=== PATIENT | male | born 1990 | race Caucasian/White ===

== ENCOUNTER 2020-01-09 12:24 | Emergency (ER) | payer MEDICAID ==
[~2020-01-09] VITALS: Ht 170.2 cm; Wt 68.0 kg
[~2020-01-09 12:24] MED LIST: ALPR0.5T8 PO; BUSP7.5T7 PO; DOXY20TA3 PO; FINA1TAB11 PO; FLUO40CA49 PO; FOLI1TAB16 PO; MONT10TA22 PO; Multivitamins GT; NICO1PAT28 TD; ONDA4TAB5 PO; THIA100T13 PO
--- NOTE | 2020-01-09 12:42 | NUR ---
Patient A/Ox4, c/o nausea and abdominal pain. To ER #3. Noted with agitation, restless.
[2020-01-09] MEDS ORDERED: LORAZEPAM INJ 2 MG/ML VIAL IM ONE (13:00)
[2020-01-09] MEDS ORDERED: ONDANSETRON HCL/PF - ER 4 MG/2 ML VIAL IM ONE (13:00)
[2020-01-09 13:26] VITALS: BP 128/81
--- NOTE | 2020-01-09 13:27 | NUR ---
Patient discharged to home in stable condition. Written and verbal after care instructions given. Patient verbalizes understanding of instruction.
== END 2020-01-09 13:26 | disposition home or self-care (01) ==
LOC: MERGE 12:26 → ER 12:26
DX: R11.2 Nausea with vomiting, unspecified (principal); F12.90 Cannabis use, unspecified, uncomplicated; J45.909 Unspecified asthma, uncomplicated; F41.9 Anxiety disorder, unspecified; Z79.899 Other long term (current) drug therapy
CPT/HCPCS: 96372 ×2; 99284; J2060; J2405

== ENCOUNTER 2020-01-10 21:36 | Emergency (ER) | payer MEDICAID ==
[~2020-01-10] VITALS: Ht 170.2 cm; Wt 68.0 kg
[2020-01-10 21:40] VITALS: BP 115/78
== END 2020-01-10 22:42 | disposition home or self-care (01) ==
LOC: ER 21:37 → MERGE 21:37 → ER 22:42
DX: F12.188 Cannabis abuse with other cannabis-induced disorder (principal); R10.11 Right upper quadrant pain; R11.2 Nausea with vomiting, unspecified; J45.909 Unspecified asthma, uncomplicated; F41.9 Anxiety disorder, unspecified; Z79.899 Other long term (current) drug therapy

== ENCOUNTER 2020-01-11 07:44 | Emergency (ER) | payer MEDICAID ==
[~2020-01-11] VITALS: Ht 170.2 cm; Wt 70.3 kg
--- NOTE | 2020-01-11 07:55 | NUR ---
CAME IN FOR NAUSEA AND VOMITING STARTED LAST NIGHT. "I WAS DISCHARGED LAST NIGHT AND THE NAUSEOUS FEELING DOESN'T GO AWAY, I CAN'T KEEP ANYTHING DOWN", TO ER BED 11, HOOKED TO MONITOR, CHANGED TO HOSP GOWN, WARM BLANKET PROVIDED, PATIENT AAO x 4, BREATHING EVEN AND UNLABORED. DR MCCABE AT BEDSIDE
[2020-01-11] MEDS ORDERED: FAMOTIDINE/PF INJ 20 MG/2 ML VIAL IV ONE ×2 (08:00→08:10)
[2020-01-11] MEDS ORDERED: LORAZEPAM INJ 2 MG/ML VIAL IV ONE (08:00)
[2020-01-11] MEDS ORDERED: METOCLOPRAMIDE HCL 10 MG/2 ML VIAL IV ONE (08:00)
[2020-01-11] MEDS ORDERED: diphenhydrAMINE HCL 50 MG/ML VIAL IV ONE (08:00)
[2020-01-11] MEDS ORDERED: IV NS 0.9% 1,000 ML BAG IV ONE (08:00)
[2020-01-11] MEDS ORDERED: LORAZEPAM INJ 2 MG/ML VIAL ONE (08:10)
[2020-01-11] MEDS ORDERED: diphenhydrAMINE HCL 50 MG/ML VIAL ONE (08:10)
[2020-01-11] MEDS ORDERED: METOCLOPRAMIDE HCL 10 MG/2 ML VIAL ONE (08:13)
[2020-01-11 08:16] LABS: BASOPHILS % (AUTO) 0.4 % (0.0-2.0); EOSINOPHILS % (AUTO) 0.1 % (0.0-6.0); HEMATOCRIT 48 % (39-51); HEMOGLOBIN 16.3 g/dL (13.5-17.5); LYMPHOCYTES # (AUTO) 1.7 /CMM (0.8-4.8); MEAN CORPUSCULAR HGB CONC 34 g/dl (31.0-36.0); MEAN CORPUSCULAR VOLUME 89 fL (80-96); MONOCYTES # (AUTO) 0.9 /CMM (0.1-1.30); MONOCYTES % (AUTO) 9.6 % (2.0-12.0); NEUTROPHILS # (AUTO) 7.2 /CMM (1.8-8.9); NEUTROPHILS % (AUTO) 72.9 % (43.0-81.0); PLATELET COUNT (AUTO) 366 /CMM (150-450); RED BLOOD CELL COUNT(AUTO) 5.38 MIL/uL (4.5-6.0); WHITE BLOOD COUNT (AUTO) 9.8 K/uL (4.3-11.0)
[2020-01-11 08:27] LABS: CALCIUM, SERUM 9.3 mg/dL (8.5-10.1); POTASSIUM 2.9 mmol/L (3.5-5.1)
[2020-01-11 08:34] LABS: ALBUMIN 4.8 g/dL (3.4-5.0); BILIRUBIN,DIRECT 0.4 mg/dL (0.0-0.2); BILIRUBIN,TOTAL 1.7 mg/dL (0.2-1.0); TOTAL PROTEIN, SERUM 7.9 g/dL (6.4-8.2)
[2020-01-11] MEDS ORDERED: HALOPERIDOL LACTATE INJ 5 MG/ML VIAL IV ONE (09:00)
[2020-01-11] MEDS ORDERED: DEXAMETHASONE SOD PHOSPHATE 10 MG/ML VIAL IV ONE (09:00)
[2020-01-11] MEDS ORDERED: DEXAMETHASONE SOD PHOSPHATE 10 MG/ML VIAL ONE (09:17)
[2020-01-11] MEDS ORDERED: HALOPERIDOL LACTATE INJ 5 MG/ML VIAL ONE (09:17)
--- NOTE | 2020-01-11 09:24 | NUR ---
patient in bed asleep, easily arousable by voice. hooked to monitor, vss. will continue to monitor accordingly.
[2020-01-11] MEDS ORDERED: POTASSIUM CL. PREMIX PERIPHER. 50 ML IV SCH (09:30)
[2020-01-11] MEDS ORDERED: POTASSIUM CL. PREMIX PERIPHER. 50 ML ONE (09:43)
[2020-01-11 11:50] VITALS: BP 126/67
--- NOTE | 2020-01-11 11:50 | NUR ---
IV removed. Catheter intact and site benign. Pressure and 4x4 applied to site. No bleeding noted.Patient discharged to home in stable condition. Written and verbal after care instructions given. Patient verbalizes understanding of instruction.
== END 2020-01-11 11:51 | disposition home or self-care (01) ==
LOC: ER 07:44 → MERGE 07:44 → ER 11:51
DX: R11.2 Nausea with vomiting, unspecified (principal); J45.909 Unspecified asthma, uncomplicated; F41.9 Anxiety disorder, unspecified; Z79.899 Other long term (current) drug therapy
CPT/HCPCS: 36415; 80048; 80076; 83690; 85025; 96361; 96374; 96375; 99284; J1100; J1200; J1630; J2060; J2765; J3480; J3490; J7030

== ENCOUNTER 2022-02-19 00:41 | Emergency (ER) | payer MEDICAID, OTHER ==
[~2022-02-19] VITALS: Ht 170.2 cm; Wt 78.9 kg
--- NOTE | 2022-02-19 01:10 | NUR ---
BIBFRIEND C/O FEELING NAUSEA FOR THE PAST FEW HOURS. PATIENT IS WITH ABDOMINAL PAIN 5/10, VOMITING SEVERAL EPISODES. AAOX4. ATTACHED TO MONITOR. VITALS CHECKED.
[2022-02-19] MEDS ORDERED: ONDANSETRON HCL/PF 4 MG/2 ML VIAL ONE (01:17)
[2022-02-19] MEDS ORDERED: ONDANSETRON HCL/PF 4 MG/2 ML VIAL IVP ONE (01:30)
[2022-02-19] MEDS ORDERED: IV NS 0.9% 1,000 ML BAG IV ONE (01:30)
--- NOTE | 2022-02-19 01:35 | NUR ---
IV CANNULA G18 INSERTED ON RIGHT AC. BLOOD DRAWN AND SENT TO LAB
[2022-02-19] MEDS ORDERED: METOCLOPRAMIDE HCL 10 MG/2 ML VIAL ONE (01:53)
[2022-02-19] MEDS ORDERED: METOCLOPRAMIDE HCL 10 MG/2 ML VIAL IV ONE (02:00)
[2022-02-19 02:01] LABS: BASOPHILS % (AUTO) 0.4 % (0.0-2.0); EOSINOPHILS % (AUTO) 0.1 % (0.0-6.0); HEMATOCRIT 49 % (39-51); HEMOGLOBIN 16.2 g/dL (13.5-17.5); LYMPHOCYTES # (AUTO) 1.4 K/uL (0.8-4.8); LYMPHOCYTES % (AUTO) 16.9 % (20.0-44.0); MEAN CORPUSCULAR HGB CONC 33 g/dl (31.0-36.0); MEAN CORPUSCULAR VOLUME 90 fL (80-96); MONOCYTES # (AUTO) 0.4 K/uL (0.1-1.30); NEUTROPHILS # (AUTO) 6.6 K/uL (1.8-8.9); NEUTROPHILS % (AUTO) 77.6 % (43.0-81.0); PLATELET COUNT (AUTO) 355 K/uL (150-450); WHITE BLOOD COUNT (AUTO) 8.6 K/uL (4.3-11.0)
[2022-02-19 02:08] LABS: CALCIUM, SERUM 9.5 mg/dL (8.5-10.1); POTASSIUM 3.5 mmol/L (3.5-5.1)
--- NOTE | 2022-02-19 02:08 | NUR ---
URINE SPECIMEN SENT TO LAB
[2022-02-19 02:13] LABS: ALBUMIN 4.9 g/dL (3.4-5.0); BILIRUBIN,TOTAL 0.7 mg/dL (0.2-1.0); TOTAL PROTEIN, SERUM 8.1 g/dL (6.4-8.2)
[2022-02-19] MEDS ORDERED: MAG HYDROX/AL HYDROX/SIMETH 30 ML UDC PO ONE (02:30)
[2022-02-19] MEDS ORDERED: LIDOCAINE VISCOUS 2% UD 15 ML UDC MM ONE (02:30)
[2022-02-19] MEDS ORDERED: PANTOPRAZOLE 40 MG VIAL IV ONE (02:30)
[2022-02-19] MEDS ORDERED: KETOROLAC TROMETHAMINE INJ 30 MG/ML VIAL IV ONE (02:30)
[2022-02-19] MEDS ORDERED: KETOROLAC TROMETHAMINE 15 MG/ML VIAL ONE (02:35)
[2022-02-19] MEDS ORDERED: LIDOCAINE VISCOUS 2% UD 15 ML UDC ONE (02:35)
[2022-02-19] MEDS ORDERED: MAG HYDROX/AL HYDROX/SIMETH 30 ML UDC ONE (02:35)
[2022-02-19] MEDS ORDERED: PANTOPRAZOLE 40 MG VIAL ONE (02:35)
[2022-02-19] MEDS ORDERED: HALOPERIDOL LACTATE INJ 5 MG/ML VIAL IM ONE (03:30)
[2022-02-19] MEDS ORDERED: HALOPERIDOL LACTATE INJ 5 MG/ML VIAL ONE (03:41)
[2022-02-19 03:46] LABS: BILIRUBIN,URINE NEGATIVE (NEGATIVE); COLOR,URINE YELLOW (YELLOW); LEUKOCYTE ESTERASE ,URINE NEGATIVE (NEGATIVE); NITRITE, URINE NEGATIVE (NEGATIVE); PROTEIN,URINE NEGATIVE (NEGATIVE); UGLUCOSE NEGATIVE (NEGATIVE); UROBILINOGEN,URINE 0.2 EU/dL (0.2)
[2022-02-19] MEDS ORDERED: METO-295 PO (04:09)
[2022-02-19] MEDS ORDERED: ONDA4TAB11 PO (04:09)
--- NOTE | 2022-02-19 04:30 | NUR ---
Patient discharged to home in stable condition. Written and verbal after care instructions given. Patient verbalizes understanding of instruction.
--- NOTE | 2022-02-19 04:30 | NUR ---
IV CANNULA REMOVED.
[2022-02-19 04:31] VITALS: BP 133/89
== END 2022-02-19 04:31 | disposition home or self-care (01) ==
LOC: ER 00:44
DX: R11.2 Nausea with vomiting, unspecified (principal); G89.29 Other chronic pain; F41.9 Anxiety disorder, unspecified; Z79.899 Other long term (current) drug therapy
CPT/HCPCS: 99284; 96374; 96375; 85025; 83690; 36415; 80053; 80307; 96372; 81003; J1630; J2765; J2405; J7030; C9113; J1885

== ENCOUNTER 2022-02-26 22:52 | Emergency (ER) | payer OTHER ==
[~2022-02-26] VITALS: Ht 170.2 cm; Wt 74.8 kg
[~2022-02-26 22:52] MED LIST changes: +METO-295 PO; +ONDA4TAB11 PO
--- NOTE | 2022-02-26 23:09 | NUR ---
PRESENTED TO THE ER FOR C/O N/V AND ABD DISCOMFORT . PT WITH HX OF HYPEREMESIS DUE TO CANABIS; HOWEVER HE DENIED USING IT TODAY. PT APPEARS VERY ANXIOS. AMBULATORY TO BED 12 , WAS PLACED ON A MONITOR . VSS. WILL CONT TO MONITOR
[2022-02-26] MEDS ORDERED: ONDANSETRON HCL/PF 4 MG/2 ML VIAL ONE (23:17)
[2022-02-26] MEDS ORDERED: IV NS 0.9% 1,000 ML BAG IV ONE (23:30)
[2022-02-26] MEDS ORDERED: ONDANSETRON HCL/PF 4 MG/2 ML VIAL IVP ONE (23:30)
[2022-02-26 23:40] LABS: BASOPHILS % (AUTO) 0.1 % (0.0-2.0); EOSINOPHILS % (AUTO) 0.1 % (0.0-6.0); HEMATOCRIT 49 % (39-51); HEMOGLOBIN 16.6 g/dL (13.5-17.5); LYMPHOCYTES # (AUTO) 0.9 K/uL (0.8-4.8); LYMPHOCYTES % (AUTO) 8.1 % (20.0-44.0); MEAN CORPUSCULAR HGB CONC 34 g/dl (31.0-36.0); MEAN CORPUSCULAR VOLUME 89 fL (80-96); MONOCYTES # (AUTO) 0.4 K/uL (0.1-1.30); MONOCYTES % (AUTO) 3.9 % (2.0-12.0); NEUTROPHILS # (AUTO) 9.4 K/uL (1.8-8.9); NEUTROPHILS % (AUTO) 87.8 % (43.0-81.0); PLATELET COUNT (AUTO) 345 K/uL (150-450); RED BLOOD CELL COUNT(AUTO) 5.46 MIL/uL (4.5-6.0); WHITE BLOOD COUNT (AUTO) 10.7 K/uL (4.3-11.0)
[2022-02-26 23:49] LABS: CALCIUM, SERUM 9.6 mg/dL (8.5-10.1); CREATININE 1.2 mg/dL (0.6-1.3); POTASSIUM 3.3 mmol/L (3.5-5.1)
--- NOTE | 2022-02-26 23:52 | NUR ---
URINE SPECIMEN SENT TO LAB
[2022-02-26] MEDS ORDERED: METOCLOPRAMIDE HCL 10 MG/2 ML VIAL ONE (23:54)
[2022-02-26 23:55] LABS: ALBUMIN 4.9 g/dL (3.4-5.0); BILIRUBIN,DIRECT 0.2 mg/dL (0.0-0.2); BILIRUBIN,TOTAL 0.7 mg/dL (0.2-1.0); TOTAL PROTEIN, SERUM 8.2 g/dL (6.4-8.2)
[2022-02-27] MEDS ORDERED: METOCLOPRAMIDE HCL 10 MG/2 ML VIAL IV ONE
[2022-02-27] MEDS ORDERED: ONDA4TAB5 PO (00:37)
--- NOTE | 2022-02-27 02:16 | NUR ---
IV CANNULA REMOVED
--- NOTE | 2022-02-27 02:16 | NUR ---
Patient discharged to home in stable condition. Written and verbal after care instructions given. Patient verbalizes understanding of instruction.
[2022-02-27 02:17] VITALS: BP 121/87
[2022-02-27] MEDS ORDERED: KETOROLAC TROMETHAMINE 15 MG/ML VIAL ONE (16:43)
[2022-02-27] MEDS ORDERED: HALOPERIDOL LACTATE INJ 5 MG/ML VIAL ONE (16:43)
[2022-02-27] MEDS ORDERED: POTASSIUM CL. PREMIX PERIPHER. 200 ML ONE (16:44)
[2022-02-27] MEDS ORDERED: PANTOPRAZOLE 40 MG VIAL ONE (16:46)
[2022-02-27] MEDS ORDERED: LORAZEPAM INJ 2 MG/ML VIAL ONE (16:47)
[2022-02-27] MEDS ORDERED: PROC-11 PO (19:06)
== END 2022-02-27 01:40 | disposition home or self-care (01) ==
LOC: ER 22:55
DX: R11.2 Nausea with vomiting, unspecified (principal); G89.29 Other chronic pain; F41.9 Anxiety disorder, unspecified; Z79.899 Other long term (current) drug therapy
CPT/HCPCS: 99284; 96374; 96361; 96375; 85025; 80048; 83690; 80076; 36415; 85730; 80320; 80307; J2765; J2405; J7030; J3480; C9113; G0480; J1630; J1885; J2060

== ENCOUNTER 2022-02-27 15:46 | Emergency (ER) | payer OTHER ==
[~2022-02-27] VITALS: Ht 170.2 cm; Wt 75.3 kg
--- NOTE | 2022-02-27 16:27 | NUR ---
CRESCENCIO FATHER [phone]
[2022-02-27] MEDS ORDERED: IV NS 0.9% 1,000 ML BAG IV ONE (16:30)
[2022-02-27] MEDS ORDERED: PROCHLORPERAZINE EDISYLATE 10 MG/2 ML VIAL IVP ONE (16:30)
[2022-02-27] MEDS ORDERED: LORAZEPAM INJ 2 MG/ML VIAL IV ONE (16:30)
[2022-02-27] MEDS ORDERED: HALOPERIDOL LACTATE INJ 5 MG/ML VIAL IV ONE (16:30)
[2022-02-27] MEDS ORDERED: KETOROLAC TROMETHAMINE INJ 30 MG/ML VIAL IV ONE (16:30)
[2022-02-27] MEDS ORDERED: PANTOPRAZOLE 40 MG VIAL IV ONE (16:30)
--- NOTE | 2022-02-27 16:31 | NUR ---
IN ED WITH REPORT OF N/V, ANXIETY/CHEST AND ABD PAIN.SEEN BY MD AND NEW ORDERS NOTED.
[2022-02-27] MEDS: POTASSIUM CL. PREMIX PERIPHER. 50 ML IV SCH ×4 (17:04→19:30)
[2022-02-27 17:36] LABS: BASOPHILS % (AUTO) 0.1 % (0.0-2.0); EOSINOPHILS % (AUTO) 0.1 % (0.0-6.0); HEMATOCRIT 44 % (39-51); HEMOGLOBIN 14.7 g/dL (13.5-17.5); LYMPHOCYTES # (AUTO) 1.2 K/uL (0.8-4.8); LYMPHOCYTES % (AUTO) 13.4 % (20.0-44.0); MEAN CORPUSCULAR HGB CONC 34 g/dl (31.0-36.0); MEAN CORPUSCULAR VOLUME 89 fL (80-96); MONOCYTES % (AUTO) 10.8 % (2.0-12.0); NEUTROPHILS # (AUTO) 6.9 K/uL (1.8-8.9); NEUTROPHILS % (AUTO) 75.6 % (43.0-81.0); PLATELET COUNT (AUTO) 301 K/uL (150-450); WHITE BLOOD COUNT (AUTO) 9.2 K/uL (4.3-11.0)
--- NOTE | 2022-02-27 17:36 | NUR ---
ORDERS VERIFIED WITH CHARGE NURSE PATIENT HAS ED ORDERS.
[2022-02-27 17:44] LABS: CALCIUM, SERUM 8.7 mg/dL (8.5-10.1); POTASSIUM 3.5 mmol/L (3.5-5.1)
[2022-02-27 17:51] LABS: ALBUMIN 4.3 g/dL (3.4-5.0); BILIRUBIN,DIRECT 0.2 mg/dL (0.0-0.2); BILIRUBIN,TOTAL 0.6 mg/dL (0.2-1.0); TOTAL PROTEIN, SERUM 7.2 g/dL (6.4-8.2)
[2022-02-27] MEDS ORDERED: PROC-11 PO (19:06)
--- NOTE | 2022-02-27 19:09 | NUR ---
POTASSIUM INFUSING VIA PUMP AT 50 ML/HR.ICE PACK TO RIGHT HAND REPORTS BURNING WITH INFUSION.IV PATENT AND INTACT. DANIEL ICE CHIPS, DECLINED APPLE JUICE FOR NOW.
--- NOTE | 2022-02-27 19:39 | NUR ---
Reported off to incoming rn assuming care.
--- NOTE | 2022-02-27 19:39 | NUR ---
IV CANNULA REMOVED
--- NOTE | 2022-02-27 19:39 | NUR ---
Patient discharged to home in stable condition. Written and verbal after care instructions given. Patient verbalizes understanding of instruction.
[2022-02-27 19:40] VITALS: BP 135/72
== END 2022-02-27 19:40 | disposition home or self-care (01) ==
LOC: ER 15:54
DX: R11.2 Nausea with vomiting, unspecified (principal); F41.9 Anxiety disorder, unspecified; E86.0 Dehydration; E87.6 Hypokalemia; K29.00 Acute gastritis without bleeding; F12.10 Cannabis abuse, uncomplicated; G89.29 Other chronic pain; Z79.899 Other long term (current) drug therapy
CPT/HCPCS: 99284; 96374; 96375; 96361; 93005; 85025; 80048; 83690; 80076; 36415; J0800; J1630; J7030; C9113; J1885

== ENCOUNTER 2022-03-14 21:42 | Emergency (ER) | payer OTHER ==
[~2022-03-14] VITALS: Ht 170.2 cm; Wt 71.2 kg
[~2022-03-14 21:42] MED LIST changes: +PROC-11 PO
--- NOTE | 2022-03-14 22:25 | NUR ---
TO ER BED 15. BIBFATHER. ANXIETY ATTACK, CHEST TIGHTNESS AND BILAT UPPER & LOWER EXT PAIN +NAUSEA. ALERT AND ORIENTED. RR EVEN AND NON LABORED. CONNECTED TO MONITOR. AWAITING MD RECIO
[2022-03-14] MEDS ORDERED: HALOPERIDOL LACTATE INJ 5 MG/ML VIAL IV ONE (23:00)
[2022-03-14] MEDS ORDERED: IV NS 0.9% 1,000 ML BAG IV ONE (23:00)
[2022-03-14] MEDS ORDERED: FAMOTIDINE/PF INJ 20 MG/2 ML VIAL IV ONE ×2 (23:00→23:07)
[2022-03-14] MEDS ORDERED: HALOPERIDOL LACTATE INJ 5 MG/ML VIAL ONE (23:07)
[2022-03-14] MEDS ORDERED: MORPHINE SULFATE INJ 4 MG/ML DISP.SYRIN ONE (23:21)
[2022-03-14] MEDS ORDERED: MORPHINE SULFATE INJ 2 MG/ML DISP.SYRIN IV ONE (23:30)
[2022-03-15 00:18] LABS: BASOPHILS % (AUTO) 0.2 % (0.0-2.0); HEMATOCRIT 48 % (39-51); HEMOGLOBIN 15.8 g/dL (13.5-17.5); LYMPHOCYTES # (AUTO) 0.7 K/uL (0.8-4.8); LYMPHOCYTES % (AUTO) 5.7 % (20.0-44.0); MEAN CORPUSCULAR HGB CONC 33 g/dl (31.0-36.0); MEAN CORPUSCULAR VOLUME 89 fL (80-96); MONOCYTES # (AUTO) 0.6 K/uL (0.1-1.30); MONOCYTES % (AUTO) 4.5 % (2.0-12.0); NEUTROPHILS % (AUTO) 89.6 % (43.0-81.0); PLATELET COUNT (AUTO) 310 K/uL (150-450); RED BLOOD CELL COUNT(AUTO) 5.39 MIL/uL (4.5-6.0); WHITE BLOOD COUNT (AUTO) 12.3 K/uL (4.3-11.0)
[2022-03-15 00:38] LABS: CALCIUM, SERUM 9.7 mg/dL (8.5-10.1); CREATININE 1.2 mg/dL (0.6-1.3); POTASSIUM 3.4 mmol/L (3.5-5.1)
[2022-03-15] MEDS ORDERED: ONDA4TAB5 PO (01:54)
--- NOTE | 2022-03-15 02:01 | NUR ---
Patient discharged to home in stable condition. Written and verbal after care instructions given. Patient verbalizes understanding of instruction.IV removed. Catheter intact and site benign. Pressure and 4x4 applied to site. No bleeding noted.
[2022-03-15 02:02] VITALS: BP 120/69
== END 2022-03-15 02:02 | disposition home or self-care (01) ==
LOC: ER 21:48
DX: R11.2 Nausea with vomiting, unspecified (principal); G89.29 Other chronic pain; F41.9 Anxiety disorder, unspecified; Z79.899 Other long term (current) drug therapy
CPT/HCPCS: 99284; 96374; 96375; 96361; 36415; 85025; 80048; 83735; J1630; J2270; J3490; J7030

== ENCOUNTER 2024-04-22 20:52 | Emergency (ER) | payer OTHER ==
[~2024-04-22] VITALS: Ht 170.2 cm; Wt 61.2 kg
[2024-04-22 21:07] VITALS: TEMP 98.6
[2024-04-22] MEDS ORDERED: ONDANSETRON HCL/PF 4 MG/2 ML VIAL ONE (21:27)
[2024-04-22] MEDS ORDERED: FAMOTIDINE/PF INJ 20 MG/2 ML VIAL IV ONE (21:27)
[2024-04-22] MEDS: IV NS 0.9% 1,000 ML BAG IV ONE ×2 (21:35→23:10)
[2024-04-22] MEDS: FAMOTIDINE/PF INJ 20 MG/2 ML VIAL IV ONE (21:35)
[2024-04-22] MEDS: ONDANSETRON HCL/PF 4 MG/2 ML VIAL IVP ONE (21:35)
[2024-04-22 21:40] LABS: BASOPHILS % (AUTO) 0.2 % (0.0-2.0); EOSINOPHILS % (AUTO) 0.1 % (0.0-6.0); HEMATOCRIT 46 % (39-51); HEMOGLOBIN 15.3 g/dL (13.5-17.5); LYMPHOCYTES # (AUTO) 1.1 K/uL (0.8-4.8); LYMPHOCYTES % (AUTO) 9.8 % (20.0-44.0); MEAN CORPUSCULAR HEMOGLOBIN 29 PG (26.0-33.0); MEAN CORPUSCULAR HGB CONC 33 g/dl (31.0-36.0); MEAN CORPUSCULAR VOLUME 88 fL (80-96); MONOCYTES # (AUTO) 0.7 K/uL (0.1-1.30); MONOCYTES % (AUTO) 6.3 % (2.0-12.0); NEUTROPHILS # (AUTO) 9.5 K/uL (1.8-8.9); NEUTROPHILS % (AUTO) 83.6 % (43.0-81.0); PLATELET COUNT (AUTO) 248 K/uL (150-450); RED BLOOD CELL COUNT(AUTO) 5.22 MIL/uL (4.5-6.0); RED CELL DISTRIBUTION WIDTH 13.6 % (11.5-15.0); WHITE BLOOD COUNT (AUTO) 11.3 K/uL (4.3-11.0)
[2024-04-22 21:53] LABS: ALBUMIN 4.6 g/dL (3.4-5.0); BILIRUBIN,DIRECT 0.2 mg/dL (0.0-0.2); BILIRUBIN,TOTAL 0.6 mg/dL (0.2-1.0); CALCIUM, SERUM 9.3 mg/dL (8.5-10.1); POTASSIUM 3.2 mmol/L (3.5-5.1); TOTAL PROTEIN, SERUM 7.7 g/dL (6.4-8.2)
[2024-04-22 22:24] VITALS: BP 105/79; O2SAT 98
[2024-04-22] MEDS ORDERED: HALOPERIDOL LACTATE INJ 5 MG/ML VIAL ONE (23:04)
[2024-04-22] MEDS: HALOPERIDOL LACTATE INJ 5 MG/ML VIAL IV ONE (23:10)
== END 2024-04-22 23:27 | disposition left against medical advice (07) ==
LOC: ER 20:57
DX: R11.2 Nausea with vomiting, unspecified (principal); R10.10 Upper abdominal pain, unspecified; F12.10 Cannabis abuse, uncomplicated; F41.9 Anxiety disorder, unspecified; G89.29 Other chronic pain; M54.9 Dorsalgia, unspecified; Z79.899 Other long term (current) drug therapy
CPT/HCPCS: 99284; 96374; 96375; 96361; 85025; 80048; 83690; 80076; 36415; J1630; J3490; J2405; J7030

== ENCOUNTER 2024-09-05 09:47 | Emergency (ER) | payer OTHER ==
[~2024-09-05] VITALS: Ht 172.7 cm; Wt 74.8 kg
[2024-09-05 09:51] VITALS: BP 124/88; TEMP 98.3
[2024-09-05] MEDS ORDERED: CYCL10TA9 PO (11:11)
[2024-09-05] MEDS ORDERED: HYDR-4209 PO (11:11)
[2024-09-05] MEDS ORDERED: MONT10TA22 PO (11:11)
[2024-09-05 11:18] VITALS: O2SAT 99
== END 2024-09-05 11:18 | disposition home or self-care (01) ==
LOC: ER 09:50
DX: G89.29 Other chronic pain (principal); M54.50 Low back pain, unspecified; F41.9 Anxiety disorder, unspecified; Z79.899 Other long term (current) drug therapy

== ENCOUNTER 2024-11-01 17:53 | Emergency (ER) | payer OTHER ==
[~2024-11-01] VITALS: Ht 175.3 cm; Wt 77.1 kg
[~2024-11-01 17:53] MED LIST changes: +CYCL10TA9 PO; +HYDR-4209 PO
[2024-11-01] MEDS ORDERED: LORAZEPAM INJ 2 MG/ML VIAL ONE ×2 (18:31→19:28)
[2024-11-01 18:42] LABS: BASOPHILS % (AUTO) 0.2 % (0.0-2.0); EOSINOPHILS % (AUTO) 0.1 % (0.0-6.0); HEMATOCRIT 50 % (39-51); HEMOGLOBIN 16.9 g/dL (13.5-17.5); LYMPHOCYTES # (AUTO) 1.5 K/uL (0.8-4.8); LYMPHOCYTES % (AUTO) 9.3 % (20.0-44.0); MEAN CORPUSCULAR HEMOGLOBIN 30 PG (26.0-33.0); MEAN CORPUSCULAR HGB CONC 34 g/dl (31.0-36.0); MEAN CORPUSCULAR VOLUME 89 fL (80-96); MONOCYTES % (AUTO) 6.3 % (2.0-12.0); NEUTROPHILS # (AUTO) 13.8 K/uL (1.8-8.9); NEUTROPHILS % (AUTO) 84.1 % (43.0-81.0); PLATELET COUNT (AUTO) 383 K/uL (150-450); RED BLOOD CELL COUNT(AUTO) 5.67 MIL/uL (4.5-6.0); RED CELL DISTRIBUTION WIDTH 12.9 % (11.5-15.0); WHITE BLOOD COUNT (AUTO) 16.4 K/uL (4.3-11.0)
[2024-11-01] MEDS: LORAZEPAM INJ 2 MG/ML VIAL IM ONE (18:42)
[2024-11-01 18:52] LABS: CALCIUM, SERUM 10.2 mg/dL (8.5-10.1); CARBON DIOXIDE 18 mmol/L (21-32); CHLORIDE 106 mmol/L (98-107); CREATININE 1.2 mg/dL (0.6-1.3); GLUCOSE 141 mg/dL (74-106); SODIUM SERUM 142 mmol/L (136-145); UREA NITROGEN, BLOOD 9 mg/dL (7-18)
[2024-11-01] MEDS ORDERED: ONDANSETRON HCL/PF 4 MG/2 ML VIAL ONE (19:27)
[2024-11-01] MEDS: IV NS 0.9% 1,000 ML BAG IV ONE (19:33)
[2024-11-01] MEDS: LORAZEPAM INJ 2 MG/ML VIAL IV ONE (19:33)
[2024-11-01] MEDS: ONDANSETRON HCL/PF - ER 4 MG/2 ML VIAL IV ONE (19:33)
[2024-11-01] MEDS ORDERED: ONDA4TAB5 PO (21:16)
[2024-11-01] MEDS ORDERED: POTASSIUM CHLORIDE 20 MEQ TAB.PRT.SR PO ONE (21:22)
[2024-11-01] MEDS: POTASSIUM CHLORIDE 20 MEQ TAB.PRT.SR PO ONE (21:23)
[2024-11-01 21:29] VITALS: BP 115/94; TEMP 98.2; O2SAT 100
== END 2024-11-01 22:51 | disposition left against medical advice (07) ==
LOC: ER 18:00
DX: F41.0 Panic disorder [episodic paroxysmal anxiety] (principal); R11.2 Nausea with vomiting, unspecified; R07.89 Other chest pain; F12.10 Cannabis abuse, uncomplicated; E87.6 Hypokalemia; E87.20 Acidosis, unspecified; Z79.899 Other long term (current) drug therapy
CPT/HCPCS: 99285; 96374; 71045; 96361; 96375; 93005 ×2; 96376; 85025; 80048; 36415; 84484 ×2; J2060 ×2; J2405 ×2

== ENCOUNTER 2024-12-02 08:18 | Emergency (ER) | payer OTHER ==
[~2024-12-02] VITALS: Ht 175.3 cm; Wt 77.1 kg
[2024-12-02 08:22] VITALS: BP 119/92; TEMP 98.1
[2024-12-02] MEDS ORDERED: ALPRAZOLAM 0.5 MG TABLET ONE (08:47)
[2024-12-02] MEDS: ALPRAZOLAM 0.5 MG TABLET PO ONE (08:51)
[2024-12-02 08:52] VITALS: O2SAT 100
== END 2024-12-02 08:53 | disposition home or self-care (01) ==
LOC: ER 08:20
DX: F41.9 Anxiety disorder, unspecified (principal); R07.9 Chest pain, unspecified; Z76.0 Encounter for issue of repeat prescription; Z79.899 Other long term (current) drug therapy

== ENCOUNTER 2025-03-25 18:48 | Emergency (ER) | payer OTHER ==
[~2025-03-25] VITALS: Ht 172.7 cm; Wt 74.8 kg
[2025-03-25 19:28] VITALS: TEMP 98
[2025-03-25] MEDS: IV NS 0.9% 1,000 ML BAG IV ONE (19:46)
[2025-03-25 19:48] LABS: PLATELET COUNT (AUTO) 327 K/uL (150-450); RED BLOOD CELL COUNT(AUTO) 5.22 MIL/uL (4.5-6.0); RED CELL DISTRIBUTION WIDTH 12.7 % (11.5-15.0); WHITE BLOOD COUNT (AUTO) 14.0 K/uL (4.3-11.0)
[2025-03-25 19:56] LABS: CALCIUM, SERUM 9.4 mg/dL (8.5-10.1); CREATININE 1.2 mg/dL (0.6-1.3); SODIUM SERUM 142 mmol/L (136-145); UREA NITROGEN, BLOOD 14 mg/dL (7-18)
[2025-03-25] MEDS: HALOPERIDOL LACTATE INJ 5 MG/ML VIAL IV ONE (19:59)
[2025-03-25] MEDS: FAMOTIDINE/PF INJ 20 MG/2 ML VIAL IV ONE (19:59)
[2025-03-25 20:02] LABS: ASPARTATE AMINOTRANSFERASE 23 U/L (15-37); TOTAL PROTEIN, SERUM 8.1 g/dL (6.4-8.2)
[2025-03-25 20:45] VITALS: BP 106/67; O2SAT 98
[2025-03-25] MEDS ORDERED: POTASSIUM CHLORIDE 20 MEQ TAB.PRT.SR PO ONE (21:07)
[2025-03-25] MEDS: POTASSIUM CHLORIDE 20 MEQ TAB.PRT.SR PO ONE (21:10)
[2025-03-26] MEDS ORDERED: ALPR2TAB7 PO (15:58)
== END 2025-03-25 21:14 | disposition left against medical advice (07) ==
LOC: ER 18:51
DX: F41.9 Anxiety disorder, unspecified (principal); R11.2 Nausea with vomiting, unspecified; E87.6 Hypokalemia; G89.29 Other chronic pain; R11.16 Cannabis hyperemesis syndrome; Z79.899 Other long term (current) drug therapy
CPT/HCPCS: 99284; 96374; 96375; 96361; 93005; 85025; 80048; 83690; 80076; 83735; 36415; 84484; J1200; J1630; J1308; J7030 ×2

== ENCOUNTER 2025-03-26 14:14 | Emergency (ER) | payer OTHER ==
[~2025-03-26] VITALS: Ht 172.7 cm; Wt 70.3 kg
[2025-03-26] MEDS ORDERED: HALOPERIDOL LACTATE INJ 5 MG/ML VIAL ONE (14:50)
[2025-03-26] MEDS: HALOPERIDOL LACTATE INJ 5 MG/ML VIAL IV ONE (14:55)
[2025-03-26] MEDS: IV NS 0.9% 1,000 ML BAG IV ONE (14:55)
[2025-03-26 15:26] LABS: PLATELET COUNT (AUTO) 347 K/uL (150-450); RED BLOOD CELL COUNT(AUTO) 5.09 MIL/uL (4.5-6.0); RED CELL DISTRIBUTION WIDTH 13.2 % (11.5-15.0); WHITE BLOOD COUNT (AUTO) 8.8 K/uL (4.3-11.0)
[2025-03-26 15:34] LABS: CALCIUM, SERUM 9.2 mg/dL (8.5-10.1); CREATININE 1.2 mg/dL (0.6-1.3); SODIUM SERUM 140.0 mmol/L (136-145); UREA NITROGEN, BLOOD 7.0 mg/dL (7-18)
[2025-03-26 15:41] LABS: ASPARTATE AMINOTRANSFERASE 19.0 U/L (15-37); TOTAL PROTEIN, SERUM 8.2 g/dL (6.4-8.2)
[2025-03-26] MEDS ORDERED: ALPR2TAB7 PO (15:58)
[2025-03-26 17:00] VITALS: BP 117/80; TEMP 98.1; O2SAT 98
== END 2025-03-26 17:01 | disposition home or self-care (01) ==
LOC: ER 14:14
DX: R11.16 Cannabis hyperemesis syndrome (principal); G89.29 Other chronic pain; M54.9 Dorsalgia, unspecified; F41.9 Anxiety disorder, unspecified; Z79.899 Other long term (current) drug therapy
CPT/HCPCS: 99284; 96374; 96361; 93005; 85025; 80048; 83690; 80076; 36415; J1630; J7030